=== PATIENT | male | born 1995 | race Caucasian/White ===

== ENCOUNTER 2022-06-10 23:53 | Emergency (ER) | payer OTHER ==
[2022-06-11] MEDS ORDERED: Lidocaine 2% Viscous Solution 15 ML UD PO STA (00:23)
[2022-06-11] MEDS ORDERED: Lidocaine 1% 10 ML MDV INJECT ONE (00:24)
[2022-06-11] MEDS ORDERED: Bupivacaine 0.5%/EPINEPHrine 1:200,000 30 ML SDV INJECT ONE (00:24)
== END 2022-06-11 01:35 | disposition home or self-care (01) ==
LOC: JD.ED 23:53
DX: K04.7 Periapical abscess without sinus (principal); F17.290 Nicotine dependence, other tobacco product, uncomplicated; Z86.16 Personal history of COVID-19
CPT/HCPCS: 64400; 99282; A9270; J3490